=== PATIENT | male | born 2005 | race Caucasian/White ===

== ENCOUNTER 2025-10-24 16:31 | Emergency (ER) | payer BC, SELFPAY ==
--- NOTE | ~2025-10-24 | XR_ITS ---
CLINICAL HISTORY: hypoxic 2 view chest x-ray Comparison: None provided Findings: No consolidation or effusion. Mild increase of interstitial lung markings. Normal size heart. No acute fracture. IMPRESSION: No consolidation. This document has been electronically signed by: Tracee Randall MD on 10/24/2025 17:37:57
--- NOTE | 2025-10-24 16:37 | ED_ITS ---
HPI - General Adult General Chief complaint: General Medical Stated complaint: vomiting Time Seen by Provider: 10/24/25 19:25 Source: patient and family (mother) Mode of arrival: ambulatory Limitations: no limitations History of Present Illness ED Provider: Ruperto BECERRA narrative: 19-year-old male presents for evaluation of a 2 day history of vomiting pain He reports coughing with fevers and chills and multiple episodes of vomiting. Denies any sick contacts. He reports generalized abdominal pain which started after his vomiting. Denies any recent travel. Denies any previous abdominal surgeries Related Data Previous Rx's ?Medication ?Instructions ?Recorded albuterol sulfate 90 mcg/actuation 2 puff inhalation Q 4-6H PRN 10/24/25 aerosol inhaler (Ventolin HFA) shortness of breath or wheezing #6.7 grams ondansetron 4 mg disintegrating 4 mg PO Q8H PRN nausea and 10/24/25 tablet vomiting #20 tabs oseltamivir 75 mg capsule (Tamiflu) 75 mg PO Q12H 5 da ys #9 caps 10/24/25 Allergies Allergy/AdvReac Type Severity Reaction Status Date / Time No Known Allergies Allergy Verified 10/24/25 16:39 Review of Systems 2 Constitutional: Constitutional: Reports body ache(s), Reports chills, Reports fever(s), Reports headache(s) and Reports malaise Eyes: Eyes: Denies blurry vision ENT: Denies dizziness and Reports headache(s) Cardiovascular: Cardiovascular: Denies chest pain and Reports dyspnea Respiratory: Respiratory: Reports cough and Reports dyspnea Gastrointestinal: Gastrointestinal: Reports abdominal pain, Denies melena, Denies hematochezia, Reports nausea and Reports vomiting Musculoskeletal: Musculoskeletal: Denies back pain Integumentary/Breasts: Skin/Breast: Denies rash Neurologic: Denies dizziness and Reports headache(s) PMF Social History Social History Smoked in Last 30 Days: No Use of substances other than those prescribed or required for medical reasons: Yes Substance Use Type: Marijuana Advance Directives: No Advance Directives Information Provided: Yes Physical Exam ED Vital Signs: Vital Signs - 24 hr 10/24/25 16:38 10/24/25 19:58 10/24/25 20:16 Temperature 99 F 98.3 F Pulse Rate 118 H 128 H 118 H Respiratory Rate 16 20 26 H Blood Pressure 117/58 L 109/58 L Pulse Oximetry 94 95 Oxygen Delivery Method Room Air Room Air BMI result Body Mass Index 21.9 Const General: healthy appearing, comfortable, no acute distress, alert and awake Nutritional Appearance: well nourished Orientation/consciousness: patient oriented x3 HENMT Head: Yes normocephalic and Yes atraumatic Eyes Eyelids: Yes eyelids normal Conjunctivae: conjunctivae normal Sclerae: sclerae normal Corneas: corneas normal Pupils: Equal, round and reactive pupils present EOM: EOMs intact bilaterally Neck Neck: Yes full ROM Resp Other: Faint expiratory wheeze heard best with the basis Effort & Inspection: normal respiratory effort, able to speak in complete sentences and not labored Cardio Rate: regular rate Rhythm: regular rhythm GI Inspection: No distended Palpation (GI): Soft to palpation, not firm, nontender, no guarding and not rigid Skin General skin exam: no rashes or lesions noted and elasticity normal Neuro General: patient oriented x3 Cranial nerves: Yes Equal, round and reactive pupils present and Yes Bilaterally intact EOM present Cognition (Neuro): normal cognition Extrem Other: Moving all extremities well without any obvious deformities Course Course Course Narrative: This is a rapid medical exam performed by Tamie Walton NP: Additional HPI, ROS, PE not included below will be deferred to primary provider. Patient is a 19y/o M presenting with complaint of vomiting for the past 24 hours. Generalized abd pain. Plan: Labs, viral serology Reevaluation(s) Reevaluation #1: The patient's fever has improved with antipyretics, his oxygen saturation is 95% on room air after his treatment. At this time I feel the patient is safe for discharge as he is not hypoxic. The patient will be discharged with Tamiflu and a refill of his albuterol inhaler Time: 21:00 Medications Administered Discontinued Medications Generic Name Dose Route Start Last Admin Trade Name Freq PRN Reason Stop Dose Admin Acetaminophen 975 mg 10/24/25 19:36 10/24/25 19:56 Acetaminophen 325 Mg Tablet PO 10/24/25 19:37 975 mg ONCE ONE Administration Levalbuterol HCl 3.75 mg/ 0 mg 10/24/25 20:08 10/24/25 20:15 Ipratropium [place] 0.5 mg INHALE 10/24/25 20:09 3.75 dose ONCE ONE Administration Sodium Chloride 1,000 mls @ 999 mls/hr 10/24/25 19:45 10/24/25 19:56 Ns IV 10/24/25 20:45 999 mls/hr .Q1H1M ELVI Administration Ketorolac Tromethamine 15 mg 10/24/25 19:36 10/24/25 19:56 Ketorolac Tromethamine 15 Mg/Ml Vial IVPUSH 10/24/25 19:37 15 mg ONCE ONE Administration Ondansetron HCl 4 mg 10/24/25 20:40 10/24/25 20:42 Ondansetron Hcl 4 Mg/2 Ml Vial IVPUSH 10/24/25 20:41 4 mg ONCE ONE Administration Oseltamivir Phosphate 75 mg 10/24/25 19:41 10/24/25 19:56 Oseltamivir Phosphate 75 Mg Capsule PO 10/24/25 19:42 75 mg ONCE ONE Administration Medical Decision Making Medical Decision Making [facility] Narrative: 19-year-old healthy male presents for evaluation of vomiting, cough and fevers. During my evaluation I checked an oral temp in his temperature was a 101.2?. He is positive for influenza a, chest x-ray is negative. Heart rate is 130s, plan to treat his fever with Toradol and acetaminophen. We will give IV fluids as well. He has some faint wheezing we will give a dose of bronchodilator. He does have some shortness of breath, during my evaluation his oxygen saturation was 93% to 95% on room air. Differential Diagnosis Differential Diagnoses: The differential diagnosis associated with the presentation includes Influenza Pneumonia Bronchitis Asthma exacerbation Lab Data [facility] Lab Attestation statement: I reviewed the patient's lab results. No leukocytosis or anemia. Normal platelet count. No electrolyte abnormalities warranting dimension. Viral swabs positive for influenza A 10/24/25 17:11 10/24/25 17:11 Labs: Lab Results 10/24/25 Range/Units 17:11 WBC 10.4 (4.8-10.8) X10*3/uL RBC 4.95 (4.60-5.80) X10*6/uL Hgb 15.2 (14.0-18.0) g/dl Hct 43.7 (42.0-52.0) % MCV 88.3 (80.0-98.0) fL MCH 30.7 (27.0-33.0) pg MCHC 34.8 (31.0-36.0) g/dl RDW 12.3 (11.0-16.0) % Plt Count 233 (160-400) X10*3/uL MPV 10.3 (9.4-12.4) fL Immature Gran % (Auto) 0.5 H (0.0-0.4) % Neut % (Auto) 87.9 H (45-73) % Lymph % (Auto) 2.7 L (20-40) % [place] % (Auto) 8.7 (2-11) % Eos % (Auto) 0.0 (0-4) % Baso % (Auto) 0.2 (0-2) % Lymph # (Auto) 0.3 L (1.2-4.9) X10*3/uL [place] # (Auto) 0.9 (0.1-1.2) X10*3/uL Eos # (Auto) 0.0 (0.0-0.4) X10*3/uL Baso # (Auto) 0.0 (0.0-0.2) X10*3/uL Abs Immat Gran (auto) 0.05 H (0.00-0.03) X10*3/uL Absolute Neuts (auto) 9.1 H (2.0-8.3) x10*3/uL Absolute Nucleated RBC 0.000 (0.0-0.012) X10*3/uL Nucleated RBC % (auto) 0.0 (0.0-0.2) /100WBC Sodium 137 (135-145) mmol/L Potassium 4.0 (3.3-5.1) mmol/L Chloride 100 (96-108) mmol/L Carbon Dioxide 24 (22-29) mmol/L Anion Gap 17 (12-20) BUN 22 H (9-16) mg/dL Creatinine 1.01 (0.5-1.4) mg/dL Estim Creat Clear Calc 104.7 Estimated GFR > 60 Random Glucose 100 (60-115) mg/dL Calcium 9.8 (8.4-10.2) mg/dL Total Bilirubin 0.4 (0.0-1.0) mg/dL AST 37 (5-37) U/L ALT 14 (0-40) U/L Alkaline Phosphatase 92 (39-117) U/L Total Protein 8.5 H (6.5-8.0) g/dL Albumin 5.1 H (3.5-5.0) g/dL Influenza Type A (PCR) POSITIVE A (Negative) Influenza Type B (PCR) NEGATIVE (Negative) RSV RNA Qual (PCR) NEGATIVE (Negative) SARS-CoV-2 RNA (RT-PCR) NEGATIVE (Negative) Discharge Plan Discharge Clinical Impression: Influenza A Patient Disposition: Home, Self-Care Instructions: Influenza (ED) Additional Instructions: You tested positive for influenza A. I recommend using ibuprofen/Tylenol for any fevers or body aches pain Drink lots of fluids. Use the albuterol inhaler as needed for wheezing and shortness of breath. Take Tamiflu twice daily for 5 days, your 1st dose was given in the ER. You may use Zofran as needed for nausea and vomiting Prescriptions: New oseltamivir [Tamiflu] 75 mg capsule 75 mg PO Q12H 5 Days Qty: 9 0RF albuterol sulfate [Ventolin HFA] 90 mcg/actuation HFA aerosol inhaler 2 puff inhalation Q4-6H PRN (Reason: shortness of breath or wheezing) Qty: 6.7 0RF ondansetron 4 mg tablet,disintegrating 4 mg PO Q8H PRN (Reason: nausea and vomiting) Qty: 20 0RF Print Language: [place]
[2025-10-24 16:38] VITALS: BP 117/58; PULSE 118; RESP 16; TEMP 37.2; O2SAT 94; BMI 21.9
[2025-10-24 17:32] LABS: MANUAL DIFF FLAG NO
[2025-10-24 17:37] LABS: Hematocrit 43.7 % (42.0-52.0); Hemoglobin 15.2 g/dl (14.0-18.0); Imm Gran Abs Auto 0.05 X10*3/uL (0.00-0.03); Imm Gran Pct Auto 0.5 % (0.0-0.4); Lymphocytes Absolute Auto 0.3 X10*3/uL (1.2-4.9); Mean Corpuscular HGB Conc 34.8 g/dl (31.0-36.0); Mean Corpuscular Hemoglobin 30.7 pg (27.0-33.0); Mean Corpuscular Volume 88.3 fL (80.0-98.0); NRBC Abs Auto 0.000 X10*3/uL (0.0-0.012); NRBC Pct Auto 0.0 /100WBC (0.0-0.2); Platelet Count 233 X10*3/uL (160-400); Red Blood Count 4.95 X10*6/uL (4.60-5.80); White Blood Count 10.4 X10*3/uL (4.8-10.8)
[2025-10-24 17:57] LABS: Alanine Aminotransferase 14 U/L (0-40); Albumin Level 5.1 g/dL (3.5-5.0); Alkaline Phosphatase 92 U/L (39-117); Anion Gap 17 (12-20); Aspartate Amino Transferase 37 U/L (5-37); Blood Urea Nitrogen 22 mg/dL (9-16); Calcium 9.8 mg/dL (8.4-10.2); Carbon Dioxide 24 mmol/L (22-29); Chloride 100 mmol/L (96-108); Creatinine Clr Calc Pharmacy 104.7; Estimated Glomerular Filt Rate > 60; Potassium 4.0 mmol/L (3.3-5.1); Sodium 137 mmol/L (135-145); Total Protein 8.5 g/dL (6.5-8.0)
[2025-10-24 18:10] LABS: Resp Syncy Virus RNA Qual PCR NEGATIVE (Negative); SARS COV2 PCR INHOUSE NEGATIVE (Negative)
[2025-10-24 19:58] VITALS: BP 109/58; PULSE 128; RESP 20; TEMP 36.8; O2SAT 95
--- NOTE | 2025-10-24 20:03 | PC.NURSE ---
Pt brought to ED 24 for treatment assumed care of pt at this time. A&Ox3 skin flushed warm and dry. Reports flu like symptoms beginning yesterday. Fever, N/V/D, headache, cough, and generalized body aches. Flu A+. IV access obtained, medicated per JAN. Awaiting RT for treatment, aware of plan of care.
[2025-10-24] MEDS: levalbuterol HCL 3.75 MG, Ipratropium Bromide 0.5 MG INHALE (20:15)
[2025-10-24 20:16] VITALS: PULSE 118; RESP 26; O2SAT 96
--- OUTSIDE RECORDS SUMMARY | 2025-10-24 21:05 | XMS_ITS | Clinical Summary ---
Author Organization [address] Address [address] [place] [phone] Phone Care Team Providers Care Insole Presser Name Role Phone Jose Wade MD Primary Care Provider Allergies Active Allergy Reactions Criticality Noted Date Comments Cat Dander 05/22/2019 Dog Dander 05/22/2019 Fexofenadine 06/27/2024 fainting Horse Dander Standardized Allergenic Extract 05/22/2019 Pollen Extracts Cough,Runny nose 04/21/2022 Itchy eyes Medications albuterol HFA (PROAIR HFA ; PROVENTIL HFA ; VENTOLIN HFA) 90 mcg/actuation inhaler Inhale 2 Puffs into the lungs every 4 hours as needed for Cough, Wheezing or Shortness of Breath. 4 Active loratadine (CLARITIN) 10 mg tablet Take 10 mg by mouth daily. Active sertraline (ZOLOFT) 100 mg tablet Take 1.5 Tablets by mouth daily. Take 1 tab and a half Active guanFACINE (INTUNIV) 1 mg 24 Hour ER tablet Take 1 tablet (1 mg total) by mouth 1 (one) time each day. 5 Active buPROPion XL (WELLBUTRIN XL) 150 mg 24 hr tablet Take 1 tablet (150 mg total) by mouth 1 (one) time each day in the morning. 5 Active hydrOXYzine HCL (ATARAX) 25 mg tablet Take 1 tablet (25 mg total) by mouth. 4 Active Active Problems Problem Noted Date Diagnosed Date Major depression 04/21/2022 Overview (10/27/2024): 01/2022- [facility] [place] Started on prozac. Acne vulgaris 10/17/2021 Overview (10/27/2024): 10/17/2021 started on Doxy, only back and chest. Testicular pain 01/01/2021 Overview (10/27/2024): 12/23/2020 pediatric surgery: Follow-up ER visit, possible torsion of the appendix testes, ultrasound showing small left varicocele. 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 Exacerbation 11/30/16 Qvar 40, 10/05/16 - Qvar 80 x 7 days. 01/27/16 - Prednisone, 10/15/12 Prednisone, Flovent. 01/15/12, 10/15/08 Prednisone 08/05/17 Flovent added. Exacerbation 11/30/16 Qvar 40, 10/05/16 - Qvar 80 x 7 days. 01/27/16 - Prednisone, 10/15/12 Prednisone, Flovent. 01/15/12, 10/15/08 Prednisone Eczema 03/17/2019 Overview (10/27/2024): DX:Eczema; COMMENT: 12/29/05 moisturize 2 - 3 times daily 12/29/05 moisturize 2 - 3 times daily Ptosis of eyelid, left 03/17/2019 Overview (10/27/2024): DX:Ptosis of eyelid, left; COMMENT: 01/18/13 Mild. Seems not to touch pupil 01/18/13 Mild. Seems not to touch pupil Immunizations Immunization Administration Dates Next Due DTaP (Infanrix) 6wks to less than 7yo ,03/01/2006,06/12/2005,03/30,01/26/2005 XHgO-ORS-QHB (Pentacel) 2mo to less than 5yo 03/01/2006,06/12/2005,03/30/2005,01/26 H1N1 Inj Preservative Free 10/10/2009,09/09/2009 HPV 9-valent (Gardisil) 9yo to less than 46yo 03/05/2018,02/19/2017 HPV, Quadrivalent 03/05/2008 Hepatitis A Pediatric (Havri x; Vaqta) 12mo to less than 19yo 06/01/2007,11/29/2006 Hepatitis B Pediatric (Enger ix B; Recombivax HB) to less than 20 yo 06/12/2005,03/30/2005,01/26/2005,11/30 IPV Inactivated polio (Ipol) 6wks and older 12/31/2009,06/12/2005,03/30/2005,01/26 Influenza trivalent, 0.5mL, preservative free (Fluarix; FluLaval; Fluzone) ages 6mo and older (Afluria) 3 years and older 08/28/2020,08/31/2018,08/12/2017,02/19,08/13/2016,08/15/2014,07/21/2013 ,10/15/2012,01/06/2012,01/05/2011,11/12/2008,07/20/2008 Influenza trivalent, with pr eservative (Fluzone; Afluria) 6mo and older 08/16/2007,09/14/2006,10/14/2005,09/14 MMR, measles mumps and rubel la Live (Priorix; M-M-R II) 12mo and older 12/31/2009,12/01/2005 Meningococcal MCV4P 10/17/2021,02/17/2016 Pfizer SARS-CoV-2 COVID-19, mRNA, LNP-S, preservative free 11/04/2021 Pneumococcal Conjugate Vacci ne, 7 Valent 03/01/2006,06/12/2005,03/30/2005,01/26 Pneumococcal conjugate 20 va lent (Prevnar 20, PCV 20) 2mo and older 03/27/2024 Tdap Tetanus diptheria acell ular pertussis (Boostrix; Adacel) 7yo and older 02/19/2017 Varicella live (Varivax) 12m o and older 12/17/2008,12/01/2005 Medical History Medical History Date Comments Allergic rhinitis 03/17/2019 DX:Allergic rh initis; COMMENT: 09/09/09 - fluticasone Asthma 03/17/2019 DX:Asthma; COMME NT: 08/05/17 Flovent added. Exacerbation 11/30/16 Qvar 40, 10/05/16 - Qvar 80 x 7 days. 01/27/16 - Prednisone, 10/15/12 Prednisone, Flovent. 01/15/12, 10/15/08 Prednisone Eczema 03/17/2019 DX:Eczema; COMME NT: 12/29/05 moisturize 2 - 3 times daily History of pneumonia 03/17/2019 DX:History of pneumonia; COMMENT: 01/27/16. 01/18/12 - Amox History of RSV infection 03/17/2019 DX:Hist ory of RSV infection; COMMENT: 12/2004 admitted x 5 days. Required oxygen Ptosis of eyelid, left 03/17/2019 DX:Ptosis of eyelid, left; COMMENT: 01/18/13 Mild. Seems not to touch pupil History of pneumonia 03/17/2019 DX:History of pneumonia; COMMENT: 01/27/16. 01/18/12 - Amox Family History Medical History Relation Name Comments Other: Thyroid Ca Aunt No Known Problems Father asthma Hypertension Maternal Grandfather Hyperlipidemia Maternal Grandmother Relation Name Status Comments Aunt Father Maternal Grandfather Maternal Grandmother Social History Tobacco Use Types Packs/Day Years Used Date Smoking Tobacco: Never Smokeless Tobacco: Never Tobacco Cessation:Counseling Given: Not Answered Housing Instability Answer Date Recorde d Are you worried that in the next 2 months you may not have stable housing? No 06/28/2025 Food Access & Nutrition Answer Date Rec orded Do you have access to a vari ety of food including fruits and vegetables? Yes 06/28/2025 Health Literacy Answer Date Recorded How often do you need to hav e someone help you when you read instructions, pamphlets, or other written material from your doctor or pharmacy? Never 06/28/2025 Caregiver: How often do you need to have someone help you when you read instructions, pamphlets, or other written material from your doctor or pharmacy? Not on file 06/28/2025 Financial Risk Answer Date Recorded How hard is it for you to pa y for the very basics like food, housing, medical care, and air conditioning / heating? Not very hard 06/28/2025 Transportation Answer Date Recorded Has the lack of transportati on kept you from meetings, work, or from getting things needed for daily living? No Has the lack of transportati on kept you from medical appointments or from getting medications? No 06/28/2025 Social Isolation Answer Date Recorded How often do you feel lonely or isolated from th ose around you? Never 06/28/2025 Food Risk Answer Date Recorded Within the past 12 months we worried whether our food would run out before we got money to buy more. Never true 06/28/2025 Within the past 12 months th e food we bought just didn't last and we didn't have money to get more. Never true 06/28/2025 Dependent Care Answer Date Recorded Do you need help finding or paying for care for your loved ones. For example, salesperson children's shoes or elderly care for an older adult? No 06/28/2025 Education Answer Date Recorded Do you think completing more education or training, like finishing a GED, going to college, or learning a trade, would be helpful for you? No 06/28/2025 Employment and Income Answer Date Recor ded During the last four weeks, have you been actively looking for work? No 06/28/2025 Living Situation Answer Date Recorded What is your living situation? Unrecognized valu e 06/28/2025 Sex and Gender Information Value Date Recorded Sex Assigned at Not on file Legal Sex Male 3:46 PM EST Gender Identity Not on file Sexual Orientation Not on file Last Filed Vital Signs Vital Sign Reading Time Taken Comments Blood Pressure 115/68 06/28/2025 3:55 PM EDT Pulse 88 06/28/2025 3:55 PM EDT Temperature 36.2 C (97.2 F) 06/28/2025 3:55 PM EDT Respiratory Rate 16 06/28/2025 3:55 PM EDT Oxygen Saturation 97% 06/28/2025 3:55 PM EDT Inhaled Oxygen Concentration - - Weight 65.3 kg (144 lb) 06/28/2025 3:55 PM EDT Height 170.2 cm (5' 7 ) 06/28/2025 3:55 PM EDT Body Mass Index 22.55 06/28/2025 3:55 PM EDT Plan of Treatment Health Maintenance Due Date Last Done Comments COVID-19 Vaccine ( season) 2025 08/18/2024, 11/04/2021, 03/11/2021, Additional history exists Influenza Vaccine (#1) 2025 , 09/08/2021, 08/28/2020, Additional history exists Annual Well Child Visit (3-21 years old) 06/28/2026 06/28/2025, 06/28/2025, 06/27/2024, Additional history exists Social Influencers of Health Screening 06/28/2026 06/28/2025 DTaP,Tdap,and Td Vaccines (7 - Td or Tdap) 02/19/2027 02/19/2017, 12/17/2008, 03/01/2006, Additional history exists Cholesterol Screening (Lipid Panel) 06/28/2030 06/28/2025, 06/29/2024, 06/29/2024 RSV Immunization Adult Patients (1 - 1-dose 75+ series) 2079 Hepatitis B Vaccines Completed 06/12/2005, 03/30/2005, 01/26/2005, Additional history exists HIB Vaccines Completed 03/01/2006, 03/2005, 03/30/2005, Additional history exists Hepatitis A Vaccines Completed 06/01/2007, 11/29/19 07 Varicella Vaccines Completed 12/17/2008, 12/01/2005 IPV Vaccines Completed 12/31/2009, 02/07, 06/12/2005, Additional history exists MMR Vaccines Completed 12/31/2009, 12/01/2005 HPV Vaccines Completed 03/05/2018, 02/06, 03/05/2008 Meningococcal ACWY Vaccine Completed 10/17/2021, Pneumococcal Vaccine: Pediatrics (0 to 5 Years) and At-Risk Patients (6 to 49 Years) Completed 03/27/2024, 03/01/2006, 06/12/2005, Additional history exists Depression Screening Completed 06/28/2025 HIV Screening Completed 06/28/2025 Hepatitis C Screening Completed 06/28/2025 Meningococcal B Vaccine Discontinued RSV Immunization Patients Under 20 months Aged Out No longer eligible based on patient's age to complete this topic Procedures Procedure Name Priority Date/Time Associated Diagnosis Comments HEPATITIS PANEL, ACUTE WITH REFLEX TO CONFIRMATION Routine 06/28/2025 4:30 PM EDT Screen for STD (sexually transmitted disease) HIV 1, 2 ANTIBODY, P24 ANTIGEN WITH REFLEX TO DIFFERENTIATION Routine 06/28/2025 4:30 PM EDT Screen for STD (sexually transmitted disease) LIPID PANEL WITH REFLEX TO DIRECT LDL Routine 06/28/2025 4:30 PM EDT Screening for lipid disorders from Last 3 Months or Most Recently Relevant to Health Maintenance Results * HIV 1,2 antibody, p24 antigen with reflex to differentiation (06/28/2025 4:30 PM EDT) HIV Combo AB/AG Negative Negative LAB CHEMISTRY METHOD 06/28/2025 9:27 PM EDT [facility] Blood Venous blood specimen / Unknown Venipuncture / Unknown 06/28/2025 4:30 PM EDT 06/28/2025 4:30 PM EDT Narrative [facility] - 06/28/2025 9:27 PM EDT This assay is a 4th generation assay allowing for earlier detection of HIV infection by detecting the presence of the HIV-1 p24 antigen as well as the traditional antibodies to HIV type 1 (including group O) and type 2. Use of a 4th generation assay is the current CDC recommendation for HIV screening. us Jose Wade MD LAB BLOOD ORDERABLES F inal Result [facility] [address] [place] [address], [place] [phone] * Lipid panel with reflex to direct LDL (06/28/2025 4:30 PM EDT) Cholesterol 164 0 - 200 mg/dL LAB CHEMISTRY METHOD 06/28/2025 7:22 PM EDT [facility] Triglycerides 100 0 - 150 mg/dL LAB CHEMISTRY METHOD 06/28/2025 7:22 PM EDT [facility] HDL 59 >=40 mg/dL LAB CHEMISTRY METHOD 06/28/2025 7:22 PM EDT [facility] LDL Calculated 85 0 - 100 mg/dL LAB CHEMISTRY METHOD 06/28/2025 7:22 PM EDT [facility] Comment:Estimated LDL Calcul ated using equation: Total cholesterol - HDL cholesterol - (Triglycerides/5) VLDL Cholesterol Maurice 20 mg/dL LAB CHEMISTRY METHOD 06/28/2025 7:22 PM EDT [facility] Non HDL Chol. (LDL+VLDL) 105 <145 mg/dL LAB CHEMISTRY METHOD 06/28/2025 7:22 PM EDT [facility] Chol/HDL Ratio 2.8 0.0 - 4.4 LAB CHEMISTRY METHOD 06/28/2025 7:22 PM T [facility] Blood Venous blood specimen / Unknown Venipuncture / Unknown 06/28/2025 4:30 PM EDT 06/28/2025 4:30 PM EDT us Jose Wade MD LAB BLOOD ORDERABLES F inal Result [facility] [address] [place] [address], [place] [phone] * Hepatitis panel, acute with reflex to confirmation (06/28/2025 4:30 PM EDT) Hepatitis B Surface Ag Negative Negative LAB CHEMISTRY METHOD 06/28/2025 10:41 PM EDT [facility] Hepatitis A Antibody IgM Negative Negative LAB CHEMISTRY METHOD 06/28/2025 10:41 PM EDT [facility] Hep B Core IgM Negative Negative LAB CHEMISTRY METHOD 06/28/2025 10:41 PM EDT [facility] Hepatitis C Antibody Negative Negative LAB CHEMISTRY METHOD 06/28/2025 10:41 PM EDT [facility] Blood Venous blood specimen / Unknown Venipuncture / Unknown 06/28/2025 4:30 PM EDT 06/28/2025 4:30 PM EDT Jose Wade MD LAB BLOOD ORDERABLES F inal Result Performing Organization Address [facility]/ZIP Co de Phone Number [facility] [address] [place] [address], [place] [phone] from Last 3 Months or Most Recently Relevant to Health Maintenance [facility] [id number] [facility] ([facility]) Care Teams Insole Presser Relationship Specialty Start Date End Date Jose Wade MD [address] [place] [phone] PCP - General 03/19/23
--- OUTSIDE RECORDS SUMMARY | 2025-10-24 21:05 | XMS_ITS | Data Portability ---
Author Organization [facility], [address] Address [address] [place] [address] Assessment No assessment recorded. Plan of Treatment Reminders Order Date Submit Date Provider Last Modified By Organization Details Last Modified Time Details Appointments None recorded. Lab rapid strep group A, throat 2022 023 [email or web address] [facility], [address] [place] [address], [place], [address], 17:38:57 streptococc us group A, culture, throat 2022 023 TERRA BELLA [facility], [address] [place] [address], [place], [address], 3 06:07:18 Referral None recorded. Procedures None recorded. Surgeries None recorded. Imaging None recorded. Medication Orders amoxicillin 875 mg tablet 2022 023 [facility] #[id number], [address] [place], [address], 3 17:38:59 prednisone 20 mg tablet 2022 023 [facility] #[id number], [address] [place], [address], 3 17:38:59 Patient TargetsNo targets recorded. Patient Instructions Encounter Date Encounter Id Patient Instructions Last Modified By Organization Details Last Modified Time 02/13/2023 [id number] sore throat: car e instructions [email or web address] Not available 02/13/2023 17:38:57 Discussed potential complications and intervention options with the patient during this visit. Patient was instructed to increase room humidity and eat soft bland foods. Raising the head of the bed, lozenges, and saline nasal spray were also recommended. Patient may take ibuprofen or acetaminophen as needed for pain control. If the issue does not improve in 24-48 hours, patient should return to the clinic for follow-up. You have been prescribed an antibiotic for your bacterial illness. While antibiotics are sometimes necessary, they can have a negative impact upon the healthy bacteria within your body. This can result in diarrhea/loose stools and yeast infections. By taking probiotics during the course of your prescription, you can lessen the probability of these undesirable side effects. Probiotics can be purchased [id number] at your pharmacy in the form of capsules or gummies. They are also found naturally in yogurt with live cultures. Mix salt into a quarter-glass of warm water and stir until no more salt will dissolve. Gargle and spit out the salt water mixture one mouthful at a time until the glass is empty. Repeat 4 times daily. Hand hygiene is a posadas measure for preventing spread to others, especially after coughing or sneezing and before preparing foods or eating, and we remind all patients of its importance. Please discard of your current tooth brush and get a new one after being on the antibiotic for 3-4 days to prevent reinfection. You are considered contagious until you have the antibiotic for 24 hours. We have sent out for lab results, typically take 3-5 days to return. [email or web address] Not available 02/13/2023 17:38:55 Reason for Referral None Reported. Results Created Date Observation Date Name Description Value Unit Range Abnormal Flag Note LastModifiedBy Organization Detail LastModifiedTime 02/14/2002/17/2023 BETA STREP GP A CULTU RE beta strep gp A culture NEGATI VE Refer ence Range : Negat rancho Not Available [facility] ([facility]) [address] [facility], [place], [address], 02/17/2023 06:07:18 02/14/2002/13/2023 rapid strep group A, throa t Unknown Analyte Normal = Negati ve Not Available [address] [facility] [address] [facility], [place], [address], 02/13/2023 17:05:01 02/14/20 23 02/13/2023 rapid strep group A, throa t Unknown Analyte negati ve Not Available [address] [facility] [facility], [place], [address], 02/13/2023 17:05:01 Result Notes None recorded. Problems Name Problem SNOMED Code Status Onset Date Resolution Date Notes Provider Name and Address Organization Details Recorded Time Anxiety 89406044 Active 023 VINCE Gee - [facility] 02/13/2023 17:01:57 Problem Notes None recorded. Medical Equipment None Reported. Medications Name Sig Start Date Stop Date Status Note LastModified by Organization Details LastModified Time hydrocodone 5 mg-acetamin ophen 325 mg tablet TAKE 1 TABLET BY MOUTH EVERY 6 HOURS NEEDED FOR PAIN. 02/13 completed Not Available Not Available Not Available minocycline 100 mg capsule TAKE 1 CAPSULE BY MOUTH TWICE A DAY WITH FOOD AND FULL GLASS OF WATER 02/13 completed Not Available Not Available Not Available prednisone 20 mg tablet Take 2 tablets every day by oral route in the morning for 3 days. 2022 active Not Available Not Available Not Avai lable doxycycline monohydrate 100 mg tablet TAKE 1 TABLET BY MOUTH TWICE A DAY 02/13 completed Not Available Not Available Not Available amoxicillin 500 mg tablet TAKE 1 TABLET BY MOUTH 3 TIMES A DAY 02/13 completed Not Available Not Available Not Available amoxicillin 875 mg tablet Take 1 tablet every 12 hours by oral route with meals for 10 days. 2022 active Not Available Not Available Not Avai lable clindamycin 1 % topical gel APPLY TWICE DAILY TO FACE W/ BPO WASH 02/13 completed Not Available Not Available Not Available minocycline 50 mg capsule TAKE 1 CAPSULE BY MOUTH TWICE A DAY 02/13 completed Not Available Not Available Not Available fluoxetine 10 mg capsule TAKE 1 CAPSULE BY MOUTH ONCE A DAY TOTAL DOSE 30 MG PER DAY 02/13 completed Not Available Not Available Not Available fluoxetine 20 mg capsule TAKE 1 CAPSULE BY MOUTH EVERY DAY active Not Available Not Available No t Available isotretinoi n 30 mg capsule TAKE 1 CAPSULE BY MOUTH EVERY DAY active Not Available Not Available No t Available Acne Medication 10 % topical gel APPLY TOPICALLY TWICE DAILY active Not Available Not Available No t Available Vitals Date Recorded Body height Body mass index (BMI) Body mass index (BMI) [Percentile] Per age and sex Body weight Pain severity - 0-10 verbal numeric rating [Score] - Reported Oxygen saturation Heart rate Respiratory rate Body temperature Systolic And Diastolic Provider Name and Address Organization Details Last Updated DateTime 170.18 cm 21.9 kg/m2 49 % 84826.9 3 g 7 98 % 85 /min 16 /min 98.4 [degF] 123/75 mm[Hg] SERGEY JACOBS PA - [facility] 17:04:37 Social History Question Answer Notes LastModified by [employer] Details LastModified Time Tobacco Smoking Status Never Smoker SERGEY peña PA [facility] 02/13/2023 17:02:15 Have You Recently Traveled Abroad? No Information not available 02/13/2023 Are You Currently In School? Yes Information not available 02/13/2023 Sex: Unknown Functional Status Question Answer Note LastModified by [employer] Details LastModified Time Do you use any illicit or recreational drugs? No Information not available 02/13/2023 Do you or have you ever used any other forms of tobacco or nicotine? No Information not available 02/13/2023 What is your level of alcohol consumption? None Information not available 02/13/2023 Are you currently employed? No Information not available 02/13/2023 Mental Status None recorded. Family History Relationship Description Onset Age of this Age Resolved Age Notes LastModified by Organization Details LastModified Time Father No current problems or disability Not available 02/13 17:02:03 Mother No current problems or disability Not available 02/13 17:02:03 Medical History No medical history recorded. Immunizations Vaccine Type Date Status Note Provider Nam e and Address Organization Details Recorded Time HPV9 7 completed SERGEY peña PA [facility] 02/13/2023 17:00:31 HPV9 8 completed SERGEY ARLENE null, PA - [facility] 02/13/2023 17:00:31 IPV 0 completed SERGEY ARLENE null, PA - [facility] 02/13/2023 17:00:31 IPV 5 completed SERGEY ARLENE null, PA - [facility] 02/13/2023 17:00:31 IPV 5 completed SERGEY ARLENE null, PA - [facility] 02/13/2023 17:00:31 IPV 5 completed SERGEY ARLENE null, PA - [facility] 02/13/2023 17:00:31 MMR 6 completed SERGEY ARLENE null, PA - [facility] 02/13/2023 17:00:31 MMR 0 completed SERGEY ARLENE null, PA - [facility] 02/13/2023 17:00:31 COVID-19, mRNA, LNP-S, PF, 30 mcg/0.3 mL dose 1 completed SERGEY ARLENE null, PA - [facility] 02/13/2023 17:00:31 COVID-19, mRNA, LNP-S, PF, 30 mcg/0.3 mL dose 1 completed SERGEY ARLENE null, PA - [facility] 02/13/2023 17:00:31 COVID-19, mRNA, LNP-S, PF, 30 mcg/0.3 mL dose 1 completed SERGEY ARLENE null, PA - [facility] 02/13/2023 17:00:31 pneumococcal conjugate PCV 7 5 completed SERGEY ARLENE null, PA - [facility] 02/13/2023 17:00:31 pneumococcal conjugate PCV 7 6 completed SERGEY ARLENE null, PA - [facility] 02/13/2023 17:00:31 pneumococcal conjugate PCV 7 5 completed SERGEY ARLENE null, PA - [facility] 02/13/2023 17:00:31 pneumococcal conjugate PCV 7 5 completed SERGEY ARLENE null, PA - [facility] 02/13/2023 17:00:31 Tdap 7 completed SERGEY ARLENE null, PA - [facility] 02/13/2023 17:00:31 varicella 6 completed SERGEY ARLENE null, PA - [facility] 02/13/2023 17:00:31 varicella 9 completed SERGEY ARLENE null, PA - [facility] 02/13/2023 17:00:31 [id number] 5 completed SERGEY ARLENE null, PA - [facility] 02/13/2023 17:00:31 [id number]-[id number] 6 completed SERGEY ARLENE null, PA - [facility] 02/13/2023 17:00:31 [id number]-Cja-GSH 5 completed SERGEY ARLENE null, PA - [facility] 02/13/2023 17:00:31 [id number]-Mgl-VET 5 completed SERGEY ARLENE null, PA - [facility] 02/13/2023 17:00:31 Influenza, split virus, trivalent, preservative 1 completed SERGEY ARLENE null, PA - [facility] 02/13/2023 17:00:31 Influenza, split virus, trivalent, preservative 2 completed SERGEY ARLENE null, PA - [facility] 02/13/2023 17:00:31 Influenza, split virus, trivalent, preservative 8 completed SERGEY ARLENE null, PA - [facility] 02/13/2023 17:00:31 Influenza, split virus, trivalent, preservative 3 completed SERGEY ARLENE null, PA - [facility] 02/13/2023 17:00:31 Influenza, split virus, trivalent, preservative 6 completed SERGEY ARLENE null, PA - [facility] 02/13/2023 17:00:31 Influenza, split virus, trivalent, preservative 4 completed SERGEY ARELNE null, PA - [facility] 02/13/2023 17:00:31 Influenza, split virus, trivalent, preservative 7 completed SERGEY ARLENE null, PA - [facility] 02/13/2023 17:00:31 Influenza, split virus, trivalent, preservative 9 completed SERGEY ARLENE null, PA - [facility] 02/13/2023 17:00:31 Influenza, split virus, trivalent, preservative 5 completed SERGEY ARLENE null, PA - [facility] 02/13/2023 17:00:31 Influenza, split virus, trivalent, preservative 6 completed SERGEY ARLENE null, PA - [facility] 02/13/2023 17:00:31 Influenza, split virus, trivalent, preservative 5 completed SERGEY ARLENE null, PA - [facility] 02/13/2023 17:00:31 Influenza, split virus, trivalent, preservative 2 completed SERGEY ARLENE null, PA - [facility] 02/13/2023 17:00:31 Influenza, split virus, trivalent, PF 0 completed SERGEY ARLENE null, PA - [facility] 02/13/2023 17:00:31 Novel [id number], preservative-free 9 completed SERGEY ARLENE null, PA - [facility] 02/13/2023 17:00:31 Novel [id number]-[id number], preservative-free 9 completed SERGEY ARLENE null, PA - [facility] 02/13/2023 17:00:31 HPV, quadrivalent 8 completed SERGEY ARLENE null, PA - [facility] 02/13/2023 17:00:31 Hep B, adolescent or pediatric 5 completed SERGEY ARLENE null, PA - [facility] 02/13/2023 17:00:31 Hep B, adolescent or pediatric 5 completed SERGEY ARLENE null, PA - [facility] 02/13/2023 17:00:31 Hep B, adolescent or pediatric 5 completed SERGEY ARLENE null, PA - [facility] 02/13/2023 17:00:31 Hep B, adolescent or pediatric 5 completed SERGEY ARLENE null, PA - [facility] 02/13/2023 17:00:31 Hep A, ped/adol, 2 dose 7 completed SERGEY ARLENE null, PA - [facility] 02/13/2023 17:00:31 Hep A, ped/adol, 2 dose 7 completed SERGEY ARLENE null, PA - [facility] 02/13/2023 17:00:31 meningococcal MCV4P 6 completed SERGEY ARLENE null, PA - [facility] 02/13/2023 17:00:31 meningococcal MCV4P 1 completed SERGEY ARLENE null, PA - [facility] 02/13/2023 17:00:31 DTaP 9 completed SERGEY ARLENE null, PA - [facility] 02/13/2023 17:00:31 DTaP 5 completed SREGEY ARLENE null, PA - [facility] 02/13/2023 17:00:31 DTaP 6 completed SERGEY ARLENE null, PA - [facility] 02/13/2023 17:00:31 DTaP 5 completed SERGEY ARLENE null, PA - [facility] 02/13/2023 17:00:31 DTaP 5 completed SERGEY ARLENE null, PA - [facility] 02/13/2023 17:00:31 Influenza, split virus, quadrivalent, PF 7 completed SERGEY ARLENE null, PA - [facility] 02/13/2023 17:00:31 Influenza, split virus, quadrivalent, PF 7 completed SERGEY ARLENE null, PA - [facility] 02/13/2023 17:00:31 Influenza, split virus, quadrivalent, PF 8 completed SERGEY ARLENE null, PA - [facility] 02/13/2023 17:00:31 Influenza, split virus, quadrivalent, PF 1 completed SERGEY ARLENE null, PA - [facility] 02/13/2023 17:00:31 Past Encounters Encounter ID Performer Location Encounter Start Date Encounter Closed Date Diagnosis/Indication Diagnosis SNOMED-CT Code Diagnosis ICD10 Code Diagnosis IMO Codes Diagnosis Note [id number] [address] [place] [address] 10/25/2016 10:05:24 10/25/2016 10:44:18 [id number] [address] [place] [address] 09/27/2018 16:43:54 09/27/2018 18:18:40 [id number] [address] [place] [address] 02/25/2016 10:28:57 02/25/2016 11:15:01 [id number] [address] [place] [address] 04/14/2017 14:55:20 04/14/2017 15:48:36 [id number] [address] [place] [address] 04/01/2017 12:14:57 04/01/2017 13:02:21 [id number] Jesus Grayson NP [address] [place] [address] 02/13/2023 16:48:37 02/13/2023 17:41:18 Streptococcal sore throat [id number] J02.0 Health Concerns Section Related Observation LastModified by Organization Detai ls LastModified Time None Recorded Concern Status LastModified by Organization Details LastModified Time None Recorded Advance Directives Directive None Recorded Payers Insurance Date Sequence Insurance Name Policy Number Policy Tyson Covered Member ID Tyson Member ID Guarantor Name 02/13/2023 1 [place] [id number] Linda Crowley [id number] Linda Crowley Notes Date Note Type Note Provider Name and Address Organization Details Recorded Time 3 text/html Sinus Complaints UCReported by PatientHPIFor location, patient reportssinus pain,facial pain, andsinus pressure. For associated symptoms, patient reportsdifficulty breathing,post nasal drip,nasal passage blockage __, andcoughbut reportsno fever,no nausea or vomiting,no sore throat,no ear fullness,no nasal itching,no eye itching, andno dizziness. For quality, patient reportsworseningbut reportsminimal discomfortandclear. For context, patient reportsworse with environmental exposurebut reportsno recent upper respiratory infection,no recent sick contacts, andnot worse with seasonal allergen exposure. For onset/timing, patient reportsworse in amandworse in pm. For duration, patient reportsfrequent. For severity, patient reportsmoderate. For risk factors, patient reportsno current smoking or tobacco useandno history of nasal trauma. For alleviating factors, patient reportsoral steroids. For aggravating factors, patient reportsworse during an upper respiratory infection (a cold)andworse with excess fatigue. For prior treatment, patient reportsoral decongestant. Sore throatReported by Patient Shortness of BreathReported by Patient Jesus Grayson NP [address] [place], [address], [place] - [facility] 02/13/2023 17:39:32
--- OUTSIDE RECORDS SUMMARY | 2025-10-24 21:05 | XMS_ITS ---
Author Name [facility] Organization Unknown Care Team Organization Name Specialty Phone Email Start Date End Da te [facility] Outbound ADT-[facility]DA 10/20/2025 Office of the Attendance Clerk (OSC) 09/22/2024 [facility] SMITA ENRIQUEZ Primary Care 03/15/2023 06/26/2024 [facility] Termed, PROVIDER Primary Care 09/15/202206/08
[2025-10-24 21:17] VITALS: BP 95/48; PULSE 121; RESP 24; TEMP 36.8; O2SAT 95
== END 2025-10-24 21:20 | disposition home or self-care (01) ==
PROVIDERS: Registered Nurse Emergency; Emergency Provider Student in an Organized Health Care Education/Training Program
DX: J10.1 Influenza due to other identified influenza virus with other respiratory manifestations (principal); R11.2 Nausea with vomiting, unspecified; R05.9 Cough, unspecified; R50.9 Fever, unspecified; R10.23 Pelvic and perineal pain bilateral; R06.02 Shortness of breath; Z03.818 Encounter for observation for suspected exposure to other biological agents ruled out
CPT/HCPCS: 71046; 80053; 85025; 87637; 94640; 96361; 96374; 96375; 99284; 99285; J1885; J2405

== ENCOUNTER → 2025-10-24 16:43 | Outpatient (BNV) | payer SELFPAY | PROVIDERS: Visit Provider Nuclear Medicine | DX: R09.02 Hypoxemia (principal) | CPT/HCPCS: 71046 ==